=== PATIENT | male | born 1950 | race Caucasian/White ===

== ENCOUNTER 2022-04-29 04:16 | Emergency (ER) | payer MEDICARE, BC, SELFPAY ==
[2022-04-29] VITALS (12 sets, daily range): BP systolic 114–128; BP diastolic 76–86; PULSE 61–71; RESP 12–22; TEMP 35.9; O2SAT 99–100
--- NOTE | ~2022-04-29 | CT_ITS ---
EXAMINATION: CTA chest abdomen pelvis DATE: 04/29/2022 06:56 INDICATION: Central chest pain radiating to neck. Marfan syndrome. TECHNIQUE: Computed tomography (CT) of the chest, abdomen, and pelvis was performed with 100 CC Omnip aque 350 intravenous contrast. Automated exposure control and iterative reconstruction technique were employed. Exam dose: 675.73 mGy-cm total exam DLP. COMPARISON: April 29, 2022 portable AP chest FINDINGS: CHEST CT: Normal heart size. Coronary artery calcifications. The aortic root measures up to 4 cm diameter. No t horacic aortic dissection or aneurysm is evident. No hilar or mediastinal mass lesion or lymphadenopathy. Minimal bilateral dependent lower lobe atelectasis. The lungs are clear of infiltrate or consolidatio n. ABDOMEN/PELVIS CT: The liver, gallbladder, bile ducts, spleen, pancreas and pancreatic duct, and adrenal glands and kidn eys are unremarkable. No urinary tract calculus or hydroureteronephrosis. There is prostate enlargement. The urinary bladder is unremarkable. There is atherosclerotic calcification but normal caliber of the abdominal aorta. Relative ectasia of the left common iliac artery, the luminal diameter measuring up to 17.8 mm. No intraperitoneal or retroperitoneal or pelvic mass lesion or adenopathy or ascites. Diverticulosis of the left colon, including numerous diverticula involving the sigmoid colon. Normal appendix. No bowel obstruction. There is a prominent amount of fecal material within the rectu m and colon. No intraperitoneal free air. Small fat-containing umbilical hernia. Prominent burst fracture of T12. Multilevel degenerative disc disease of lumbar spine, particularly p rominent at L2-3, with up to 3 retrolisthesis, and at L5-S1. No suspicious osteolytic or osteoblastic lesions are noted. IMPRESSION: No aortic aneurysm or dissection Minimal bilateral dependent lower lobe atelectasis Diverticulosis of left colon; no evidence of diverticulitis Prominent burst fracture of T12 Multilevel degenerative disc disease, with associated retrolisthesis at L2-3 Reviewed, dictated and finalized at [facility]. Reviewed, dictated and finalized at [facility]. RATOR MAN
--- NOTE | ~2022-04-29 | XR_ITS ---
XR chest 1V portable DATE: 04/29/2022 05:57 INDICATION: Central chest pain radiating to neck. Marfan syndrome. TECHNIQUE: Portable upright AP chest on April 29, 2022 at 0547 hours COMPARISON: None FINDINGS: Normal heart size. Aortic unfolding. No hilar or mediastinal enlargement. No pulmonary infi ltrate or consolidation, pleural effusion or pulmonary vascular congestion or pneumothorax. IMPRESSION: No active cardiopulmonary disease Reviewed, dictated and finalized at location [facility]. [employer] SERVICES COORDINATOR
--- NOTE | 2022-04-29 04:26 | ECG_ITS ---
Measurements Intervals [place] Rate: 67 P: 54 IA: 173 QRS: 22 QRSD: 94 T: 44 QT: 391 QTc: 413 Interpretive Statements SINUS RHYTHM NO PREVIOUS ECG AVAILABLE FOR COMPARISON Electronically Signed On 04-29-2022 8:40:49 [employer] by Madai Morgan M.D.
--- NOTE | 2022-04-29 05:05 | ED.GENADULT ---
HPI - General Adult General Chief complaint: Chest Pain <Kyle Evans MD - Last Filed: 04/29/22 06:50> Stated complaint: chest pain <Klye Evans MD - Last Filed: 04/29/22 06:50> Time Seen by Provider: 04/29/22 04:34 <Kyle Evans MD - Last Filed: 04/29/22 06:50> History of Present Illness HPI narrative: this is a 71-year-old male with a history of connective tissue disorders presenting to the ED with chest pain. Patient says that at 10:30 a.m. last night he started experience a sharp pain that radiates up into his neck and ear, 3 out 10 intensity and constant. Patient says he has experienced this couple times in the past but never had it worked up. It is improved with sitting up and worse with lying down. he took some Rolaids with no relief. He has a known aortic aneurysm. He has connective tissue disorder and has had multiple retinal detachments / lens dislocations. He denies cough, shortness of breath, numbness tingling or weakness to any extremity, fevers. He has a history of GERD but he has not had symptoms in over 10 years. <Kyle Evans MD - Last Filed: 04/29/22 06:50> Related Data Allergies/adverse reactions: Allergies Allergy/AdvReac Type Severity Reaction Status Date / Time Penicillins Allergy Unknown Verified 04/29/22 04:38 thimerosal Allergy Dry Eye Verified 04/29/22 04:38 <Kyle Evans MD - Last Filed: 04/29/22 06:50> [facility] Past Medical History Medical History: Medical History Connective tissue disorder Hypertension Osteopenia Retinal detachment <Kyle Evans MD - Last Filed: 04/29/22 06:50> Surgical History Surgical History: Surgical History Status post bilateral hernia repair <Kyle Evans MD - Last Filed: 04/29/22 06:50> Social History Social History: Social History Social History: Patient drinks beer occasionally <Kyle Evans MD - Last Filed: 04/29/22 06:50> Exam Narrative: APPEARANCE: No apparent distress. patient is pleasant polite during the interview Head: atraumatic. EYES: EOMI, NOSE: Atraumatic NECK: Trachea midline RESPIRATORY: No increased rate of breathing, clear to auscultation CARDIOVASCULAR: RRR, pulses are equal in all 4 extremities ABDOMINAL: Non-distended MUSCULOSKELETAl: No obvious deformities NEURO: Alert. Cranial nerves 2-12 grossly intact. Sensation light touch, motor function cerebellar function intact for 4 extremities. Gait exam was deferred. SKIN:: Warm, dry. Normal color PSYCHIATRIC: Normal affect <Kyle Evans MD - Last Filed: 04/29/22 06:50> Course Course Emergency Course: Care turned over to myself at shift change seen eval by myself agrees initial H&P currently resting in bed. Patient states pain was in the midsternal chest he states it was present when he took a deep inspiration and will resolve when he held his breath or was not taking a deep breath he states he has no pain at this time patient has no previous cardiac history Patient CTA came back showing the patient had a T12 burst fracture when discussed with the patient he has been up walking to the bathroom with no difficulty has no neurodeficits. On exam he has no tenderness throughout the thoracic or lumbar spine at the midline. I discussed with the patient he states that he does have a history of a T12 fracture he believes from May. He was able to pull up his records from the [facility] showing that he had a T12 moderate endplate compression fracture in May 2021. Called and discussed with Dr. Schwartz for neurosurgery reviewed the patient's imaging. As the patient has no acute pain and were unsure of the exact time of injury she believes the patient may be discharged to follow-up with his PCP when he returns home I will send patient w
[2022-04-29] MEDS: FAMOTIDINE 20 MG/2 ML VIAL IV PUSH (05:16)
[2022-04-29] MEDS: MAG HYDROX/AL HYDROX/SIMETH 30 ML UDC PO (05:16)
[2022-04-29 05:30] LABS: Basophils Percent Auto 0.3 % (0.2-1.2); Eosinophils Percent Auto 0.3 % (0-4.4); Hematocrit 43.5 % (42.0-52.0); Hemoglobin 15.1 g/dL (14.0-18.0); Immature Granulocyte Absolute 0.05 K/mm3 (0.00-0.031); Immature Granulocyte Percent A 0.4 % (0-0.5); Lymphocytes Absolute Auto 0.92 K/mm3 (0.9-3.2); Lymphocytes Percent Auto 7.3 % (18.3-44.2); Mean Corpuscular HGB Conc 34.7 g/dl (32-36); Mean Corpuscular Hemoglobin 32.3 pg (26-34); Mean Corpuscular Volume 93.1 fl (80-100); Mean Platelet Volume 12.6 fl (7.4-10.4); Monocytes Absolute Auto 1.1 K/mm3 (0.1-0.6); Monocytes Percent Auto 8.5 % (2.6-8.5); Neutrophils Absolute Auto 10.6 K/mm3 (1.3-6.7); Neutrophils Percent Auto 83.2 % (45.5-73.1); Platelet Count Result 177 k/mm3 (150-375); Red Blood Count 4.67 M/mm3 (4.6-6.20); White Blood Count 12.7 K/mm3 (4.5-10.0)
[2022-04-29 05:46] LABS: Alanine Aminotransferase 30 U/L (6-50); Albumin Level 4.3 g/dL (3.5-5.1); Alkaline Phosphatase 79 U/L (38-126); Anion Gap 5 mmol/L (8-16); Aspartate Amino Transferase 36 U/L (17-59); Bilirubin,Total 0.8 mg/dL (0.2-1.3); Blood Urea Nitrogen 14 mg/dL (9-20); Calcium 8.7 mg/dL (8.4-10.2); Carbon Dioxide 29 mmol/L (22-30); Chloride 102 mmol/L (98-107); Estimated CRCL calculation 81 ml/min; Estimated Glomerular Filt Rate > 60; Glucose 139 mg/dL (65-110); Potassium 3.8 mmol/L (3.4-5.0); Sodium 136 mmol/L (137-145)
[2022-04-29 05:56] LABS: Troponin I < 0.012 ng/mL (0.000-0.034)
[2022-04-29 09:02] LABS: Troponin I < 0.012 ng/mL (0.000-0.034)
== END 2022-04-29 10:53 | disposition home or self-care (01) ==
PROVIDERS: Emergency Provider Emergency Medicine
DX: K21.9 Gastro-esophageal reflux disease without esophagitis (principal); I10 Essential (primary) hypertension; I71.9 Aortic aneurysm of unspecified site, without rupture; L94.9 Localized connective tissue disorder, unspecified; M85.80 Other specified disorders of bone density and structure, unspecified site; K57.90 Diverticulosis of intestine, part unspecified, without perforation or abscess without bleeding; M51.36 Other intervertebral disc degeneration, lumbar region; S22.081D Stable burst fracture of T11-T12 vertebra, subsequent encounter for fracture with routine healing; X58.XXXD Exposure to other specified factors, subsequent encounter
CPT/HCPCS: 36415; 71045; 71275; 74174; 80053; 84484; 85025; 93005; 96374; 99284; A9270; Q9967